=== PATIENT | female | born 1970 | race Caucasian/White ===

== ENCOUNTER 2018-01-02 19:08 | Observation (INO) ==
--- NOTE | 2018-01-02 19:36 | DR.DIZZY ---
HPI Time seen Time seen: 19:20 HPI Comment HPI Comment: 47 y/o female presenting with syncope x 2 today. These were not position related. She felt a sensation of blanketing out, with vision going out. She denies palpitations, SOB or c/p. She states 1 of today's events was witnessed by her . She had Syncope also yesterday and day before yesterday. She denies incontinence of urine or feces. She did not bite herself in the mouth. 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 Past Surgical History: Yes Surgical History: (x 4) ROS Review of Systems Constitutional: No Symptoms Reported Eyes: No Symptoms Reported ENTM: No Symptoms Reported Respiratoy: No Symptoms Reported Cardiovascular: Syncope Gastrointestinal/Abdominal: No Symptoms Reported Genitourinary: No Symptoms Reported Neurological: No Symptoms Reported Musculoskeletal: No Symptoms Reported Integumentary: No Symptoms Reported Hematologic/Lymphatic: No Symptoms Reported Endocrine: No Symptoms Reported Psychiatric: No Symptoms Reported All Other Systems: Reviewed and Negative PE Vital Signs Vitals: Temperature 97.3 F Pulse Rate [Apical] 66 Pulse Rate [Left] 76 Pulse Rate 72 Respiratory Rate 20 Blood Pressure [Left Arm] 123/78 Blood Pressure 110/72 O2 Sat by Pulse Oximetry 100 General Limitations: No Limitations General Appearance: Alert and In No Apparent Distress Head Head Exam: Normal Inspection, Atraumatic and Normocephalic Eyes Eye exam: Normal Appearance, PERRL and EOMI ENT ENT Exam: Normal Exam, Normal Oropharynx and Mucous Membranes Moist Neck Neck Exam: Normal Inspection, Full ROM and Trachea Midline Chest Chest Inspection: Normal Inspection and Symmetric Chest Wall Rise Respiratory Respiratory Exam: Normal Lung Sounds Bilat Cardiovascular Cardiovascular Exam: Regular Rate, Normal Rhythm, +S1 and +S2 Abdominal Exam Abdominal Exam: Normal Inspection, Normal Bowel Sounds and Soft Rectal Rectal Exam: Deferred Extremeties Extremities Exam: Normal Inspection and Full ROM Back Back Exam: Normal Inspection Neurologic Neurological Exam: Alert, Oriented X3 and Normal Gait Psychiatric Psychiatric Exam: Normal Affect and Normal Mood Skin Skin Exam: Warm, Dry, Intact and Normal Color COURSE Reevaluation 1st: Unchanged Education/Counseling Education/Counseling: Patient, Family and Education Educated On: Treatment, Diagnosis and Needs for Follow Up ROR Labs Reviewed Result Diagrams: 01/02/18 19:36 01/02/18 19:36 Laboratory: WBC 11.3 X10^3/uL (3.6-10.0) H 01/02/18 19:36 RBC 4.38 X10^6/uL (3.5-5.4) 01/02/18 19:36 Hgb 13.7 g/dL (12.0-16.0) 01/02/18 19:36 Hct 39.8 % (36.0-47.0) 01/02/18 19:36 MCV 90.9 fL (80.0-100.0) 01/02/18 19:36 MCH 31.3 pg (27.0-34.0) 01/02/18 19:36 MCHC 34.4 g/dL (33.0-35.0) 01/02/18 19:36 RDW 14.8 % (11.6-16.5) 01/02/18 19:36 Plt Count 403 X10^3/uL (150.0-450.0) 01/02/18 19:36 MPV 7.7 fL (7.4-11.0) 01/02/18 19:36 Neut % (Auto) 56.9 % (42.0-75.0) 01/02/18 19:36 Lymph % (Auto) 35.5 % (21.0-51.0) 01/02/18 19:36 [place] % (Auto) 6.7 % (0.0-13.0) 01/02/18 19:36 Eos % (Auto) 0.5 % (0.9-2.9) L 01/02/18 19:36 Baso % (Auto) 0.4 % (0.2-1.0) 01/02/18 19:36 Neut # (Auto) 6.4 x10^3/uL (2.2-4.8) H 01/02/18 19:36 Lymph # (Auto) 4.0 X10^3/uL (1.3-2.9) H 01/02/18 19:36 [place] # (Auto) 0.8 x10^3/uL (0.3-0.8) 01/02/18 19:36 Eos # (Auto) 0.1 x10^3/uL (0.0-0.2) 01/02/18 19:36 Baso # (Auto) 0.0 X10^3/uL (0.0-0.1) 01/02/18 19:36 Absolute Nucleated RBC 0.1 /100WBC 01/02/18 19:36 Sodium 140 mmol/L (136-145) 01/02/18 19:36 Corrected Sodium TNP 01/02/18 19:36 Potassium 3.9 mmol/L (3.5-5.1) 01/02/18 19:36 Chloride 103 mmol/L (98-107) 01/02/18 19:36 Carbon Dioxide 30.7 mmol/L (21-32) 01/02/18 19:36 BUN 13 mg/dL (7-18) 01/02/18 19:36 Creatinine 0.88 mg/dL (0.55-1.02) 01/02/18 19:36 Est GFR (MDRD) Af Amer > 60 (>60) 01/02/18 19:36 Est GFR (MDRD) Non-Af > 60 (>60) 01/02/18 19:36 Glucose 94 mg/dL (65-99) 01/02/18 19:36 Calcium 8.9 mg/dL (8.5-10.1) 01/02/18 19:36 Corrected Calcium TNP 01/02/18 19:36 Total Bilirubin 0.10 mg/dL (0.2-1.0) L 01/02/18 19:36 AST 12 Units/L (15-37) L 01/02/18 19:36 ALT 19 Units/L (12-78) 01/02/18 19:36 Alkaline Phosphatase 74 Units/L (46-116) 01/02/18 19:36 Creatine Kinase 82 Units/L (26-192) 01/02/18 19:36 CK-MB (CK-2) < 1.0 ng/mL (0-4.0) 01/02/18 19:36 CK/CKMB % Calc 1.2 % (<4) 01/02/18 19:36 Troponin I < 0.02 ng/mL (0-1.5) 01/02/18 19:36 Total Protein 7.3 g/dL (6.4-8.2) 01/02/18 19:36 Albumin 3.5 g/dL (3.4-5.0) 01/02/18 19:36 Globulin 3.8 g/dL (2.5-4.5) 01/02/18 19:36 Albumin/Globulin Ratio 0.9 Ratio (1.1-2.1) L 01/02/18 19:36 XRAY XRAY Findings: Brain CT: minimal microischemic changes in deep white matter, no acute abno EKG Rate: 77 [place]: Normal Rhythm: NSR Block: None Hypertrophy: None ST: Normal Diagnosis Discharge Problem: Syncope
[2018-01-02 19:46] LABS: BASOPHILS % (AUTO) 0.4 % (0.2-1.0); EOSINOPHILS # (AUTO) 0.1 x10^3/uL (0.0-0.2); EOSINOPHILS % (AUTO) 0.5 % (0.9-2.9); HEMATOCRIT 39.8 % (36.0-47.0); HEMOGLOBIN 13.7 g/dL (12.0-16.0); LYMPHOCYTES % (AUTO) 35.5 % (21.0-51.0); MEAN CORPUSCULAR HEMOGLOBIN 31.3 pg (27.0-34.0); MEAN CORPUSCULAR HGB CONC 34.4 g/dL (33.0-35.0); MEAN CORPUSCULAR VOLUME 90.9 fL (80.0-100.0); MEAN PLATELET VOLUME 7.7 fL (7.4-11.0); MONOCYTES # (AUTO) 0.8 x10^3/uL (0.3-0.8); MONOCYTES % (AUTO) 6.7 % (0.0-13.0); NEUTROPHILS # (AUTO) 6.4 x10^3/uL (2.2-4.8); NEUTROPHILS % (AUTO) 56.9 % (42.0-75.0); PLATELET COUNT 403 X10^3/uL (150.0-450.0); RED BLOOD COUNT 4.38 X10^6/uL (3.5-5.4); RED CELL DISTRIBUTION WIDTH 14.8 % (11.6-16.5); WHITE BLOOD COUNT 11.3 X10^3/uL (3.6-10.0)
[2018-01-02 20:00] LABS: BLOOD UREA NITROGEN 13 mg/dL (7-18); CALCIUM 8.9 mg/dL (8.5-10.1); CARBON DIOXIDE 30.7 mmol/L (21-32); CHLORIDE 103 mmol/L (98-107); CREATININE 0.88 mg/dL (0.55-1.02); SODIUM 140 mmol/L (136-145); TROPONIN I < 0.02 ng/mL (0-1.5); eGFR NON BLACK RACES > 60 (>60)
--- NOTE | 2018-01-02 20:00 | CT ---
Indication: Mental status changes Exam: CT head without contrast. Technique: Routine transaxial images were obtained through the brain without contrast. Findings: The ventricles are normal. No intracranial hemorrhage or edema is seen. There is mild periv entricular low density bilaterally. There is no extra-axial fluid collection or mass. The midline str uctures are unremarkable. The bones are intact. Impression: Minimal chronic microischemic changes in the deep white matter with no acute abnormality seen. Reported By:
[2018-01-02 20:04] LABS: ALANINE AMINOTRANSFERASE 19 Units/L (12-78); ALBUMIN 3.5 g/dL (3.4-5.0); ALKALINE PHOSPHATASE 74 Units/L (46-116); ASPARTATE AMINO TRANSFERASE 12 Units/L (15-37); CREATINE KINASE 82 Units/L (26-192); CREATINE KINASE MB < 1.0 ng/mL (0-4.0); TOTAL PROTEIN 7.3 g/dL (6.4-8.2)
[2018-01-02 20:08] LABS: CKMB % 1.2 % (<4)
[2018-01-02] MEDS ORDERED: NS 1000 ML 1,000 ML IV ONE (22:04)
[2018-01-02 23:09] VITALS: BMI 27.4
[2018-01-02] MEDS ORDERED: NS 1000 ML 1,000 ML IV SCH (23:45)
[2018-01-03 02:38] LABS: CKMB % 1.6 % (<4); CREATINE KINASE 63 Units/L (26-192); CREATINE KINASE MB < 1.0 ng/mL (0-4.0); TROPONIN I < 0.02 ng/mL (0-1.5)
[2018-01-03 08:48] VITALS: BP 92/53
[2018-01-03] MEDS ORDERED: XARELTO PO SCH (09:00)
[2018-01-04] MEDS ORDERED: XARELTO PO SCH (09:00)
== END 2018-01-03 12:12 | disposition home or self-care (01) ==
LOC: ER 19:09 → MED/SURG 19:09
PROVIDERS: ADMIT Obstetrics & Gynecology Obstetrics; ATTEND Obstetrics & Gynecology Obstetrics
DX: R00.1 Bradycardia, unspecified; G25.81 Restless legs syndrome; R55 Syncope and collapse; F12.90 Cannabis use, unspecified, uncomplicated; F15.90 Other stimulant use, unspecified, uncomplicated; N95.1 Menopausal and female climacteric states; Z86.718 Personal history of other venous thrombosis and embolism; Z86.711 Personal history of pulmonary embolism
CPT/HCPCS: 36415; 70450; 80053; 80307; 82550; 82553; 82728; 84484; 85025; 93005; 93010; 96365; 99284; A4222; G0378; G0434; J7030